=== PATIENT | male | born 1995 | race Two or more races ===

== ENCOUNTER 2018-12-08 23:27 | Emergency (ER) | payer SELFPAY ==
[~2018-12-08] VITALS: Ht 172.7 cm; Wt 72.6 kg
--- NOTE | 2018-12-08 23:35 | NUR ---
ED Nurse Note: PATIENT AMBULATED TO ED C/O PENILE RASH X 2 WEEKS. PT REPORTS BURNING SENSATION AND HARDENING OF SKIN. AO4. NAD. VSS. ACCOMPANIED BY FAMILY MEMBER. URINE COLLECTED; SENT TO LAB.
[2018-12-08 23:37] VITALS: BP 150/87
[2018-12-08] MEDS ORDERED: MUPIROCIN22 GM TOPIC (23:50)
--- NOTE | 2018-12-08 23:50 | Emergency Room Report ---
History of Present Illness General Chief Complaint: Male Urogenital Problems Source: Patient Present Illness HPI This is a 23-year-old male with no past medical history. He presents with chief complaint of penile pain. No discharge. Is been ongoing for the last 2 days. Is near the foreskin the shaft of the penis. Some swelling in that area. Burning sensation. No dysuria frequency. No hematuria. He is sexually active. Allergies: Coded Allergies: No Known Allergies (Unverified , 12/08/18) Patient History Past Medical History: see triage record, old chart reviewed Past Surgical History: none Pertinent Family History: none Social History: Denies: smoking Immunizations: other Reviewed Nursing Documentation: PMH: Agreed; PSxH: Agreed Nursing Documentation-PMH Past Medical History: No Stated History Review of Systems Eye: Denies: eye pain, blurred vision ENT: Denies: ear pain, nose congestion, throat swelling Respiratory: Denies: cough, shortness of breath Cardiovascular: Denies: chest pain, palpitations Gastrointestinal: Denies: abdominal pain, diarrhea, nausea, vomiting Musculoskeletal: Denies: back pain, joint pain Skin: Denies: rash Neurological: Denies: headache, numbness Endocrine: Denies: increased thirst, increased urine Hematologic/Lymphatic: Denies: easy bruising All Other Systems: negative except mentioned in HPI Physical Exam Vital Signs Date Time Temp Pulse Resp B/P (MAP) Pulse Ox O2 Delivery O2 Flow Rate FiO2 12/08/18 23:29 98.1 62 14 150/87 (108) 99 Room Air Vitals normal except for high blood pressure Sp02 EP Interpretation: reviewed, normal General Appearance: well appearing, no apparent distress, alert Head: normocephalic, atraumatic Eyes: bilateral eye PERRL, bilateral eye EOMI ENT: hearing grossly normal, normal pharynx Neck: full range of motion, supple, no meningismus Respiratory: chest non-tender, lungs clear, normal breath sounds Cardiovascular #1: regular rate, rhythm, no murmur Gastrointestinal: normal bowel sounds, non tender, no mass, no organomegaly, no bruit, non-distended Genitourinary: other - Patient is circumcised. The skin at the base of the gland on the right side shows some edema and irritation. No vesicular lesion. Musculoskeletal: back normal, gait/station normal, normal range of motion Psychiatric: mood/affect normal Skin: warm/dry Medical Decision Making Diagnostic Impression: Primary Impression: Penile cellulitis ER Course Patient with erythema and irritation to the skin on the shaft the penis. No obvious herpes lesion. Will treat for possible urethritis and will put him on antibiotics. Last Vital Signs Date Time Temp Pulse Resp B/P (MAP) Pulse Ox O2 Delivery O2 Flow Rate FiO2 12/08/18 23:37 98.1 87 14 150/87 99 Room Air Status: improved Disposition: HOME, SELF-CARE Condition: Stable Scripts Mupirocin* (MUPIROCIN*) 22 Gm Oint...g. 1 APPLIC TOPIC THREE TIMES A DAY, #22 GM Prov: Sukh Castillo MD 12/08/18 Additional Instructions: Follow-up with your doctor in 7 days. Hold off on any sexual activities or masturbation until symptoms resolve. Return if worse. Sukh Castillo MD Dec 08, 2018 23:50
[2018-12-08 23:55] VITALS: BP 150/87
--- NOTE | 2018-12-08 23:55 | NUR ---
ER DISCHARGE NOTE: Patient is cleared to be discharged per ERMD, pt is aox4, on room air, with stable vital signs. pt was given dc and prescription instructions, pt was able to verbalize understanding, pt id band removed. pt is able to ambulate with steady gait. pt took all belongings.
[2018-12-09] MEDS ORDERED: Azithromycin 250mg tab ORAL ONE
[2018-12-09] MEDS ORDERED: Lidocaine 1% MPF 10mg/ml 5ml INJ ONE
== END 2018-12-08 23:56 | disposition home or self-care (01) ==
LOC: EMR 23:56
DX: N48.22 Cellulitis of corpus cavernosum and penis (principal)
CPT/HCPCS: 96372; 96374; 99284; J0696